=== PATIENT | male | born 1990 | race Caucasian/White ===

== ENCOUNTER 2020-05-15 17:54 | Emergency (ER) | payer OTHER, SELFPAY ==
--- NOTE | ~2020-05-15 | XR_ITS ---
XR forearm RT 2V 05/15/2020 18:34 Indication: Patient fell through window. Laceration. Procedure: 2 views right forearm Comparison: No prior studies for comparison. Findings: There is a soft tissue laceration ventral to the forearm. No associated foreign body is yareli ntified. No acute fracture or traumatic malalignment. The elbow and wrist are in anatomic alignment. Impression: 1: No acute bone or joint abnormality. Reviewed, dictated and finalized at location A. Impression: 1: No acute bone or joint abnormality.
--- NOTE | ~2020-05-15 | XR_ITS ---
XR hand RT min 3V 05/15/2020 19:26 INDICATION: Right hand pain after laceration PROCEDURE: 3 views right hand COMPARISON: 05/15/2020 FINDINGS: Fracture, dislocation or subluxation is not identified. There is a soft tissue laceration v entral to the distal aspect of the forearm. No foreign bodies are identified. IMPRESSION: 1: NO ACUTE BONE OR JOINT ABNORMALITY IDENTIFIED. Reviewed, dictated and finalized at location A.
[2020-05-15 18:01] VITALS: BP 137/94; PULSE 144; RESP 25; O2SAT 98
--- NOTE | 2020-05-15 18:14 | PC.NURSE ---
Pt to ED with several smaller laceration on right hand and a 3 large laceration on right inner forearm. Largest one is about 6 cm long and about 1 cm width, middle sized one is about 4 cm, and smallest one is about 2 cm. Pt is able to move hand. Pt rpeorts he fell and hand went through a window. When his dressing from home was removed, some squirting noted. Pt punched Saline to area, and rewrapped. Pt reports he has had 2 fifths of vodka today. Pt reports he is homless. Pt is sweating and anxious on arrival to room.
--- NOTE | 2020-05-15 18:33 | ED.WOUNDLAC ---
HPI - Wound/Laceration General Chief Complaint: Wound/Laceration <PRAVIN Justin Last Filed: 05/15/20 21:30> Stated Complaint: laceration <PRAVIN Justin Last Filed: 05/15/20 21:30> Time Seen by Provider: 05/15/20 18:12 <PRAVIN Justin Last Filed: 05/15/20 21:30> Source: patient <PRAVIN Justin Last Filed: 05/15/20 21:30> Mode of arrival: ambulatory <PRAVIN Justin Last Filed: 05/15/20 21:30> Limitations: intoxication <PRAVIN Justin Last Filed: 05/15/20 21:30> History of Present Illness HPI narrative: This is a 29 year old male that presents to the ER for laceration to the left forearm sustained just prior to arrival. Reports he had been drinking today and tripped and fell through a window. Reports he is up to date on tetanus. Denies hitting his head, loss of consciousness, other injuries, decreased ROM, or numbness. <PRAVIN Justin Last Filed: 05/15/20 21:30> Related Data Home Medications: Home Medications Medication Instructions Recorded Confirmed No Home Medications 05/15/20 05/15/20 <PRAVIN Justin Last Filed: 05/15/20 21:30> Allergies/Adverse Reactions: Allergies Allergy/AdvReac Type Severity Reaction Status Date / Time No Known Allergies Allergy Verified 05/15/20 17:54 <PRAVIN Justin Last Filed: 05/15/20 21:30> Review of Systems Review of Systems: Narrative: CONSTITUTIONAL: Denies fever EYES: Denies visual changes GASTROINTESTINAL: Denies vomiting MUSCULOSKELETAL: Reports joint pain, and myalgia. NEUROLOGIC: Denies headache, numbness, or weakness. <PRAVIN Justin Last Filed: 05/15/20 21:30> All systems reviewed & are unremarkable except as noted in HPI and below <PRAVIN Justin Last Filed: 05/15/20 21:30> [facility] Past Medical History Medical History: Medical History (Updated 05/15/20 @ 21:09 by Luz Maria Beach PA-C) Chest pain <Luz Maria Beach PA-C - Last Filed: 05/15/20 21:30> Family History Family History: Family History (Updated 10/29/19 @ 04:47 by Elvin Fernandez MD) Other Acute myocardial infarction Hypertension <Luz Maria Beach PA-C - Last Filed: 05/15/20 21:30> Social History Social History: Social History (Updated 05/15/20 @ 19:12 by Luz Maria Beach PA-C) Smoking status: Current every day smoker Tobacco type: cigarettes Alcohol intake: current Substance use: never Gender identity (if verbalized by the patient): Male <Luz Maria Beach PA-C - Last Filed: 05/15/20 21:30> Exam Narrative: Exam Narrative: GENERAL: Intoxicated, in no acute distress. HEAD: Normocephalic, atraumatic. EYES: PERRLA and EOMI. CHEST: Clear to auscultation. No respiratory distress. No wheezes rales or rhonchi HEART: Regular rate and rhythm. No murmur heard. Normal peripheral pulses. EXTREMITIES: Normal range of motion. No edema or obvious deformity. Right mid forearm ventral surface with 4 lacerations: 10cm linear laceration that involves some muscle belly, no tendon involvement noted. 3cm linear laceration into subcutaneous tissue. 6cm linear laceration into subcutaneous tissue. 5cm linear laceration into subcutaneous tissue. Normal sensation SKIN: Warm, dry, no rash. NEURO: No focal deficits. Alert and oriented x3. Cranial nerves II through XII grossly intact PSYCH: Normal mood and affect <Luz Maria Beach PA-C - Last Filed: 05/15/20 21:30> Course WINDOW SHADE ESTIMATOR/PA Physician Supervision For this patient encounter, I reviewed the WINDOW SHADE ESTIMATOR or PA documentation, treatment plan, and medical decision making; and I had [id number] time with this patient. GENERAL: Experiencing-appearing, well-nourished, and in no acute distress. HEAD: Normocephalic, atraumatic. Extremities: Right upper extremity with full range of motion normal strength at the shoulder/elbow/wrist/fingers. Sharp and soft touch intact. SKIN: Warm, dry, multi
--- NOTE | 2020-05-15 18:51 | PC.NURSE ---
Pt refusing IV.
[2020-05-15 18:57] VITALS: BP 113/57; PULSE 101; RESP 27; O2SAT 94
--- NOTE | 2020-05-15 20:46 | PC.NURSE ---
Lidocain given by PA. See documentation
[2020-05-15] MEDS: CEPHALEXIN 500 MG CAPSULE PO (21:38)
[2020-05-15 21:51] VITALS: BP 121/75; PULSE 108; RESP 18; O2SAT 94
== END 2020-05-15 21:52 | disposition home or self-care (01) ==
PROVIDERS: Emergency Provider Emergency Medicine
DX: S51.811A Laceration without foreign body of right forearm, initial encounter (principal); W01.110A Fall on same level from slipping, tripping and stumbling with subsequent striking against sharp glass, initial encounter
CPT/HCPCS: 12006; 73090; 73130; 99283; A9270

== ENCOUNTER 2022-11-26 08:52 | Outpatient (CLI) | payer OTHER, SELFPAY ==
[2022-11-26 09:57] LABS: Basophils Percent Auto 0.3 % (0.2-1.2); Eosinophils Absolute Auto 0.1 K/mm3 (0-0.3); Eosinophils Percent Auto 1.5 % (0-4.4); Hematocrit 49.5 % (42.0-52.0); Hemoglobin 15.9 g/dL (14.0-18.0); Immature Granulocyte Absolute 0.02 K/mm3 (0.00-0.031); Immature Granulocyte Percent A 0.3 % (0-0.5); Lymphocytes Absolute Auto 1.97 K/mm3 (0.9-3.2); Lymphocytes Percent Auto 32.8 % (18.3-44.2); Mean Corpuscular HGB Conc 32.1 g/dl (32-36); Mean Corpuscular Hemoglobin 28.9 pg (26-34); Mean Corpuscular Volume 89.8 fl (80-100); Mean Platelet Volume 9.9 fl (7.4-10.4); Monocytes Absolute Auto 0.6 K/mm3 (0.1-0.6); Monocytes Percent Auto 10.7 % (2.6-8.5); Neutrophils Absolute Auto 3.3 K/mm3 (1.3-6.7); Neutrophils Percent Auto 54.4 % (45.5-73.1); Platelet Count Result 200 k/mm3 (150-375); Red Blood Count 5.51 M/mm3 (4.6-6.20); Red Cell Distribution Width 12.9 % (11.5-14.5)
[2022-11-26 10:59] LABS: Vitamin D 25 Hydroxy 34.8 ng/mL
[2022-11-26 11:27] LABS: Hemoglobin A1C 5.3 % (<5.7)
[2022-11-26 12:03] LABS: Hepatitis C Virus Antibody Negative (Negative)
[2022-11-26 14:20] LABS: Rapid Plasma Reagin Non-Reactive (NonReactive)
[2022-11-26 18:03] LABS: Alanine Aminotransferase 50 U/L (6-50); Albumin Level 4.6 g/dL (3.5-5.1); Alkaline Phosphatase 73 U/L (38-126); Anion Gap 5 mmol/L (8-16); Aspartate Amino Transferase 31 U/L (17-59); Bilirubin,Total 0.4 mg/dL (0.2-1.3); Blood Urea Nitrogen 9 mg/dL (9-20); Carbon Dioxide 29 mmol/L (22-30); Chloride 104 mmol/L (98-107); Cholesterol 179 mg/dL (0-200); Estimated Glomerular Filt Rate > 60; Glucose 102 mg/dL (65-110); HDL Direct 40 mg/dL; Potassium 4.4 mmol/L (3.4-5.0); Sodium 138 mmol/L (137-145); Triglycerides 108 mg/dL (<150)
[2022-11-26 18:14] LABS: LDL Cholesterol Direct 102 mg/dL
[2022-11-26 18:32] LABS: Thyroid Stimulating Hormone 0.348 uIU/mL (0.465-4.680)
== END 2022-11-26 08:53 | disposition home or self-care (01) ==
LOC: ANHLAB 08:57
DX: F10.20 Alcohol dependence, uncomplicated (principal); Z79.899 Other long term (current) drug therapy
CPT/HCPCS: 36415; 80053; 80061; 82306; 83036; 84443; 85025; 86592; 86695; 86696; 86803; 87491; 87591; 87661

== ENCOUNTER 2024-07-22 13:52 | Emergency (ER) | payer OTHER, SELFPAY ==
[2024-07-22 14:02] VITALS: BP 141/78; PULSE 105; RESP 18; TEMP 37.3; O2SAT 99
[2024-07-22 14:13] VITALS: RESP 20; O2SAT 98
--- NOTE | 2024-07-22 14:15 | ED.RECABL ---
HPI - Recheck/Abnormal Lab/Rx General Chief Complaint: Recheck/Abnormal Lab/Rx Stated Complaint: requesting covid test Time Seen by Provider: 07/22/24 14:09 History of Present Illness HPI narrative: 33-year-old male presenting for COVID test. States that he has had runny nose, headache, body aches. States that his son has similar symptoms. He tested positive for COVID-19 today but he needs a formal test for parole requirements. No chest pain or shortness of breath. No leg swelling. Related Data Home Medications Medication Instructions Recorded Confirmed No Home Medications 05/15/20 05/15/20 Allergies Allergy/AdvReac Type Severity Reaction Status Date / Time No Known Allergies Allergy Verified 05/15/20 17:54 Review of Systems Review of Systems: All systems reviewed & are unremarkable except as noted in HPI and below PMFSH Past Medical History Medical History Chest pain Family History Family History Other Acute myocardial infarction Hypertension Social History Social History Smoking status: Current every day smoker Tobacco type: cigarettes Alcohol intake: current Substance use: never Gender identity (if verbalized by the patient): Male Exam Narrative: GENERAL: Well-appearing, no acute distress, pleasant cooperative HEAD: Normocephalic, atraumatic. EYES: PERRLA and EOMI. ENT: Grossly unremarkable NECK: Supple. CHEST: Clear to auscultation. No respiratory distress. HEART: Regular rate and rhythm EXTREMITIES: Normal range of motion. No edema. SKIN: Warm, dry, no rash. NEURO: Alert and oriented x3. PSYCH: Normal mood and affect. Course Vital Signs Vital signs: Vital Signs Temperature 99.2 F 07/22/24 14:02 Pulse Rate 105 H 07/22/24 14:02 Respiratory Rate 18 07/22/24 14:02 Blood Pressure 141/78 H 07/22/24 14:02 Pulse Oximetry 99 07/22/24 14:02 Temperature 99.2 F 07/22/24 14:02 Pulse Rate 105 H 07/22/24 14:02 Respiratory Rate 20 07/22/24 14:13 Blood Pressure 141/78 H 07/22/24 14:02 Pulse Oximetry 98 07/22/24 14:13 MDM - Recheck/Abnormal Lab/Rx MDM Narrative Medical decision making narrative: 33-year-old male presenting for COVID test. Vitals are stable. Exam remarkable for the above. Patient is positive for COVID-19. Will provide the appropriate paperwork. Discussed appropriate supportive care. Safe for outpatient management. Patient is agreeable this plan. Discharged in stable condition. Differential Diagnosis Differential diagnosis: Likely other (COVID-19, URI, influenza) Lab Data Attestation: I reviewed the patient's lab results. Labs: Lab Results 07/22/24 Range/Units 14:31 Influenza A (RT-PCR) Negative (Negative) Influenza B (RT-PCR) Negative (Negative) SARS-CoV-2 RNA (RT-PCR) Positive A (Negative) Critical Care Time Critical Care Time Critical Care Time: No Discharge Plan Discharge Clinical Impression: COVID-19 Patient Disposition: Home, Self-Care Condition: Stable Instructions: Antibiotic Form, How to Recover from COVID-19 at Home (ED) Additional Instructions: You have tested positive for COVID-19. If your symptoms worsen or other concerning symptoms arise, please return to the ER. Prescriptions: No Action No Home Medications cephalexin 500 mg capsule 500 mg PO Q8H 7 Days Qty: 21 0RF Follow-up/Referrals: Teresa Parkinson DO [Physician] - Stand Alone Forms: Work/School Release IP
[2024-07-22] MEDS: ACETAMINOPHEN 500 MG TABLET 1000 MG PO (14:29)
[2024-07-22 15:26] LABS: Influenza A QL RT-PCR Negative (Negative); Influenza B QL RT-PCR Negative (Negative); SARS-CoV-2 RNA PCR Positive (Negative)
== END 2024-07-22 15:41 | disposition home or self-care (01) ==
PROVIDERS: Physician Assistant; Emergency Provider Emergency Medicine
DX: U07.1 COVID-19 (principal)
CPT/HCPCS: 87636; 99283; A9270